=== PATIENT | female | born 1985 | race American Indian/Alaskan Native ===

== ENCOUNTER 2017-05-23 15:59 | Emergency (ER) | payer SELFPAY ==
[2017-05-23 20:28] LABS: HCG Qualitative,Urine Positive (Negative)
[2017-05-23] MEDS ORDERED: TYLENOL ONE (20:30)
[2017-05-23] MEDS ORDERED: TYLENOL PO ONE (20:31)
[2017-05-23 20:37] LABS: Bacteria,Urine 1+ /HPF (Negative); Bilirubin,Urine NEG (Negative); Blood,Urine NEG (Negative); Color,Urine Yellow (Yellow); Mucus,Urine 3+ /HPF
--- NOTE | 2017-05-23 21:05 | Emergency Department Report ---
ED ENT HPI - General Chief complaint: Dental/Oral Stated complaint: TOOTHACHE Time Seen by Provider: 05/23/17 20:02 Source: patient Mode of arrival: Ambulatory Limitations: No Limitations - History of Present Illness Initial comments: This is a 31-year-old female nontoxic, well nourished in appearance, no acute signs of distress presents to the ED with c/o of acute on chronic toothache and headache. Patient describes headache as aching with level of 8/10. Patient denies worst headache. Patient denies any visual changes. Patient denies thundeclap headache. Patient stated is similar symptoms as her migraine headache. Patient stated darkness makes headache better and lights worsen it. Patient denies any chest pain, shortness of breathe, fever, chills, stiff neck, nausea, vomiting, numbness, tingling, back pain. Patient stated she is 11 weeks . Patient denies any care. Patient stated she has a history of preeclampsia. Patient denies any taking any medication for blood pressure. Last menstrual cycle 03/06/2017. Patient denies any facial swelling or abscess. MD complaint: tooth pain, other (headache) -: days(s) (2) Location: tooth # 1 - pain Severity: mild Severity scale (0 -10): 8 Quality: aching Consistency: constant Improves with: none Worsens with: none Associated Symptoms: gum swelling, toothache. denies: fever, cough, pain with swallowing, sore throat, tinnitus, hearing loss, discharge from ear, rhinorrhea - Related Data Previous Rx's Medication Instructions Recorded Last Taken Type Acetaminophen 500 mg PO Q8H PRN #30 tablet 05/23/17 Unknown Rx Amoxicillin/K Clav Tab [Augmentin 1 tab PO Q12HR #20 tab 05/23/17 Unknown Rx 875 mg] Chlorhexidine Mouthwash [Peridex] 15 ml MM BID #1 bottle 05/23/17 Unknown Rx Labetalol [Normodyne TAB] 200 mg PO BID #60 tablet 05/23/17 Unknown Rx Allergies Allergy/AdvReac Type Severity Reaction Status Date / Time No Known Allergies Allergy Unverified 05/23/17 16:07 ED Dental HPI - General Chief complaint: Dental/Oral Stated complaint: TOOTHACHE Time Seen by Provider: 05/23/17 20:02 Source: patient Mode of arrival: Ambulatory Limitations: No Limitations - Related Data Previous Rx's Medication Instructions Recorded Last Taken Type Acetaminophen 500 mg PO Q8H PRN #30 tablet 05/23/17 Unknown Rx Amoxicillin/K Clav Tab [Augmentin 1 tab PO Q12HR #20 tab 05/23/17 Unknown Rx 875 mg] Chlorhexidine Mouthwash [Peridex] 15 ml MM BID #1 bottle 05/23/17 Unknown Rx Labetalol [Normodyne TAB] 200 mg PO BID #60 tablet 05/23/17 Unknown Rx Allergies Allergy/AdvReac Type Severity Reaction Status Date / Time No Known Allergies Allergy Unverified 05/23/17 16:07 ED Review of Systems ROS: Stated complaint: TOOTHACHE Other details as noted in HPI Constitutional: denies: chills, fever Eyes: denies: eye pain, eye discharge, vision change ENT: dental pain. denies: ear pain, throat pain Respiratory: denies: cough, shortness of breath, wheezing Cardiovascular: denies: chest pain, palpitations Endocrine: no symptoms reported Gastrointestinal: denies: abdominal pain, nausea, diarrhea Genitourinary: denies: urgency, dysuria, discharge Musculoskeletal: denies: back pain, joint swelling, arthralgia Skin: denies: rash, lesions Neurological: headache. denies: weakness, paresthesias Psychiatric: denies: anxiety, depression Hematological/Lymphatic: denies: easy bleeding, easy bruising ED Past Medical Hx - Past Medical History Previous Medical History?: Yes Hx Hypertension: Yes (with . Post HTN) - Surgical History Past Surgical History?: Yes Additional Surgical History: Miscarriage x 1, x 1, x 2 - Social History Smoking Status: Never Smoker Substance Use Type: Non Opiate Pain - Medications Home Medications: Home Medications Medication Instructions Recorded Confirmed Last Taken Type Acetaminophen 500 mg PO Q8H PRN #30 tablet 05/23/17 Unknown Rx Amoxicillin/K Clav Tab [Augmentin 1 tab PO Q12HR #20 tab 05/23/17 Unknown Rx 875 mg] Chlorhexidine Mouthwash [Peridex] 15 ml MM BID #1 bottle 05/23/17 Unknown Rx Labetalol [Normodyne TAB] 200 mg PO BID #60 tablet 05/23/17 Unknown Rx ED Physical Exam - General Limitations: No Limitations General appearance: alert, in no apparent distress - Head Head exam: Present: atraumatic, normocephalic - Eye Eye exam: Present: normal appearance, PERRL, EOMI Pupils: Present: normal accommodation - ENT ENT exam: Present: mucous membranes moist - Expanded ENT Exam Expanded Ear exam: Present: normal external inspection Mouth exam: Present: normal external inspection, tongue normal. Absent: drooling, trismus, muffled voice, tongue elevation, laceration Teeth exam: Present: dental tenderness #, gingival enlargement, other (No facial swelling. no abscess noted.) 1 - Dental Tenderness Throat exam: Positive: normal inspection, other (Uvula midline. ). Negative: tonsillar erythema, tonsillomegaly, tonsillar exudate, R peritonsillar mass, L peritonsillar mass - Neck Neck exam: Present: normal inspection, full ROM - Respiratory Respiratory exam: Present: normal lung sounds bilaterally. Absent: respiratory distress, wheezes, rales, rhonchi, stridor, chest wall tenderness, accessory muscle use, decreased breath sounds, prolonged expiratory - Cardiovascular Cardiovascular Exam: Present: regular rate, normal rhythm, normal heart sounds. Absent: irregular rhythm, systolic murmur, diastolic murmur, rubs, gallop - GI/Abdominal GI/Abdominal exam: Present: soft, normal bowel sounds. Absent: distended, tenderness, guarding, rebound, rigid, diminished bowel sounds - Rectal Rectal exam: Present: deferred - Extremities Exam Extremities exam: Present: normal inspection, full ROM, normal capillary refill - Back Exam Back exam: Present: normal inspection, full ROM - Neurological Exam Neurological exam: Present: alert, oriented X3, CN II-XII intact, normal gait, reflexes normal - Expanded Neurological Exam Expanded Patient oriented to: Present: person, place, time Cranial nerves: EOM's Intact: Normal, Gag Reflex: Normal, Tongue Deviation: Normal, Facial Palsy with Forehead Movement: Normal, Facial Palsy without Forehead Movement: Normal Cerebellar function: Finger to Nose: Normal Upper motor neuron: Pronator Drift: Normal, Sensory Extinction: Normal Sensory exam: Upper Extremity Light Touch: Normal, Upper Extremity Pin Prick: Normal, Upper Extremity Temperature: Normal, UE 2 Point Discrimination: Normal, Lower Extremity Light Touch: Normal, Lower Extremity Pin Prick: Normal, Lower Extremity Temperature: Normal, LE 2 Point Discrimination: Normal Motor strength exam: RUE: 5, LUE: 5, RLE: 5, LLE: 5 DTR: bicep (R): 2+, bicep (L): 2+, tricep (R): 2+, tricep (L): 2+, knee (R): 2+ , knee (L): 2+, ankle (R): 2+, ankle (L): 2+ Best Eye Response ([place]): (4) open spontaneously Best Motor Response ([place]): (6) obeys commands Best Verbal Response ([place]): (5) oriented [place] Total: 15 - Psychiatric Psychiatric exam: Present: normal affect, normal mood - Skin Skin exam: Present: warm, dry, intact, normal color. Absent: rash - Other Other exam information: This is a 31-year-old female that presents with gestational hypertension and toothache. Patient is stable and was examined by me. UA obtained with elevated protein. Dr. Martin and Dr. Cortez was consulted. As per Dr. Cortez requested , patient has been started on labetalol 200 mg twice a day and patient received hydralazine in the ED which blood pressure decreased over the 140/90. Patient was also started on Augmentin and Peridex for gingivitis. Patient was referred instructed to Follow-up with a [facility] in 3-5 days or if symptoms worsen and continue return to emergency room as soon as possible. At time of discharge, the patient does not seem toxic or ill in appearance. No acute signs of distress noted. Patient agrees to discharge treatment plan of care. No further questions noted by the patient. ED Course Vital Signs 05/23/17 05/23/17 05/23/17 16:07 20:12 20:32 Temperature 99.5 F Pulse Rate 98 H 95 H Respiratory 18 18 Rate Blood Pressure 150/100 Blood Pressure 153/107 [Left] O2 Sat by Pulse 99 Oximetry - Consultations Consultation #1: 05/23/17 21:13 Patient has been consulted with Dr. Martin about patient history, physical exam , and labs and examined and screened patient and agrees to ED plan of care with consulting [facility] Consultation #2: 05/23/17 21:13 Dr. Cortez from [facility] was consulted about patient history, physical exam, and labs findings with proteinuria and stated this is nor preeclampsia and is chronic hypertension with and to start patient on labetalol 20 mg twice a day and follow-up. Dr. Cortez also stated to give patient hydralazine IV and have the blood pressure lowered to 140/90 and then discharge with follow- up. Critical care attestation.: If time is entered above; I have spent that time in minutes in the direct care of this critically ill patient, excluding procedure time. ED Disposition Clinical Impression: Toothache, Gingivitis Gestational hypertension Qualifiers: Trimester: first trimester Qualified Code(s): O13.1 - Gestational [- induced] hypertension without significant proteinuria, first trimester Disposition: TO HOME OR SELFCARE Is pt being admited?: No Does the pt Need Aspirin: No Condition: Stable Instructions: Hypertension (ED), Pre-eclampsia and Eclampsia (ED), Labetalol ( By mouth), Amoxicillin/Clavulanate Potassium (By mouth) Additional Instructions: Follow-up with a [facility] in 3-5 days or if symptoms worsen and continue return to emergency room as soon as possible. Keep a daily diary of your blood pressure and present it to your provider. Prescriptions: Acetaminophen 500 mg PO Q8H PRN #30 tablet PRN Reason: Pain Amoxicillin/K Clav Tab [Augmentin 875 mg] 1 tab PO Q12HR #20 tab Chlorhexidine Mouthwash [Peridex] 15 ml MM BID #1 bottle Labetalol [Normodyne TAB] 200 mg PO BID #60 tablet Referrals: PRIMARY CARE, [Primary Care Provider] - 3-5 Days ARPITA CORTEZ MD [Staff Physician] - 3-5 Days CHARLIE ALEXANDER MD [Staff Physician] - 3-5 Days [facility] [Provider Group] - 3-5 Days [facility] [Outside] - 3-5 Days [facility] [Outside] - 3-5 Days Forms: Work/School Release Form(ED)
[2017-05-23] MEDS ORDERED: APRESOLINE IV ONE (21:10)
[2017-05-23] MEDS ORDERED: CATAPRES PO ONE (23:03)
[2017-05-24 00:27] VITALS: BP 137/88
== END 2017-05-24 00:54 | disposition home or self-care (01) ==
LOC: ED 15:59
DX: O99.611 Diseases of the digestive system complicating pregnancy, first trimester (principal); O13.1 Gestational [pregnancy-induced] hypertension without significant proteinuria, first trimester; Z3A.11 11 weeks gestation of pregnancy
CPT/HCPCS: 81001; 81025; 96374; 99283; J0360